=== PATIENT | female | born 1965 | race Caucasian/White ===

== ENCOUNTER → 2018-12-28 14:30 | Outpatient (CLI) | payer BC, SELFPAY ==
--- NOTE | 2018-12-28 14:30 | EMB_PTH ---
PATIENT: DANN LEIGH LOC: [facility] U#:[id number] AGE/SX: 59/F ROOM: RE12/28/[address]: Dr. Federico Florez MD : 1965 BED: DIS: SPEC #: [id number] RECD: 12/29/18 10:24 STATUS: GRACE NARGIS #: [id number] ESTELLE: 12/28/18 14:[address]: Federico Florez DEPT: SURGICAL PATHOLOGY RECD BY: Rigoberto Aguilar Tissues: Endometrium, NOS Procedures: Surgery Specimen Level IV HEADER OPERATION: Endometrial biopsy PRE-OP DIAGNOSIS: PMB N95.0 TISSUE SUBMITTED: Endometrial biopsy MICROSCOPIC DIAGNOSIS Endometrial biopsy: Scant strips of benign endometrial epithelium. Negative for hyperplasia. See comment. ALEKSEY:yola 12/30/18 COMMENT Clinical correlation and appropriate follow up are necessary. MICROSCOPIC DESCRIPTION Slides are reviewed. GROSS DESCRIPTION Received in fixative is one container labeled with the patient's name and designated EM biopsy. The specimen consists of a scant amount of soft tissue. The specimen is totally submitted for cell block preparation. / ALEKSEY:yola 12/29/18 TC:4 CPT: 07452
== END ==
PROVIDERS: Referring Provider Obstetrics & Gynecology; Visit Provider Obstetrics & Gynecology
DX: N95.0 Postmenopausal bleeding (principal)
CPT/HCPCS: 88305

== ENCOUNTER 2020-12-02 20:17 | Emergency (ER) | payer OTHER, SELFPAY ==
[2020-12-02 20:18] VITALS: BP 178/110; PULSE 80; RESP 18; TEMP 36.3; O2SAT 97; BMI 29.9
--- NOTE | 2020-12-02 21:08 | CT_ITS ---
EXAM: CT HEAD WITHOUT INTRAVENOUS CONTRAST : 1965 CLINICAL INDICATION: Injury/Pain TECHNIQUE: Multiple axial images were obtained of the head without intravenous contrast. This CT exam was performed using one or more of the following dose reduction techniques: automated exposure control, adjustment of the mA and/or kV according to patient size, and/or use of iterative reconstruction technique. This report was created using [employer] report generation technology. COMPARISON: None. FINDINGS: BRAIN AND EXTRA-AXIAL SPACES: Unremarkable. No intra- or extra-axial hemorrhage. No evidence of acute infarct. No intracranial mass or mass effect. There is preservation of the [place]/white matter interface. Posterior fossa structures are unremarkable. Ventricles are appropriate for age. No hydrocephalus. Basal cisterns are patent. BONES/JOINTS: Unremarkable. No discrete lytic or blastic abnormalities. SINUSES: Unremarkable as visualized. Clear. MASTOID AIR CELLS: Unremarkable. Clear. ORBITS: Visualized globes, extraocular muscles, optic nerves and retrobulbar fat appear unremarkable. CT/Brain/Head without Contrast IMPRESSION: Negative head/brain CT without intravenous contrast. Individualized dose optimization techniques were used for this CT. at 2133 Reported and signed by: Emigdio Perez MD Electronically Signed: Emigdio Perez MD at 21:32 EDT Tel , Service support ,
--- NOTE | 2020-12-02 21:08 | CT_ITS ---
EXAM: CT CERVICAL SPINE WITHOUT INTRAVENOUS CONTRAST : 1965 CLINICAL INDICATION: Injury/Pain TECHNIQUE: Helically acquired images were obtained of the cervical spine without intravenous contrast. 2D reformatted images were reviewed. This CT exam was performed using one or more of the following dose reduction techniques: automated exposure control, adjustment of the mA and/or kV according to patient size, and/or use of iterative reconstruction technique. This report was created using [employer] report generation technology. COMPARISON: None. FINDINGS: VERTEBRAE: Unremarkable. No fracture. No traumatic subluxation. No discrete lytic or blastic abnormality. Normal alignment. Normal craniocervical junction and cervicothoracic junction. DISCS/SPINAL CANAL/NEURAL FORAMINA: There is disc space narrowing at C5-6 and C6-7. There is left bony neural foraminal narrowing at C4-5 with bilateral bony neural foraminal narrowing at C5-6. SOFT TISSUES: Unremarkable. No prevertebral soft tissue swelling. LYMPH NODES: Unremarkable. No cervical adenopathy. LUNG APICES: Unremarkable as visualized. Clear. CT/Spine Cervical without Contras IMPRESSION: 1. No acute osseous abnormalities. 2. Degenerative changes with disc space narrowing and bony neural foraminal narrowing. Individualized dose optimization techniques were used for this CT. at 2148 Reported and signed by: Emigdio Perez MD Electronically Signed: Emigdio Perez MD at 21:47 EDT Tel , Service support ,
[2020-12-02] MEDS: Acetaminophen 500 MG Tablet 1000 MG PO (21:19)
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
[2020-12-02] MEDS: oxyCODONE 5 MG Tablet PO (23:08)
== END 2020-12-02 23:10 | disposition home or self-care (01) ==
PROVIDERS: Emergency Provider Emergency Medicine; PCP Family Medicine
DX: S09.90XA Unspecified injury of head, initial encounter (principal); S16.1XXA Strain of muscle, fascia and tendon at neck level, initial encounter; E03.9 Hypothyroidism, unspecified; I10 Essential (primary) hypertension; Z79.899 Other long term (current) drug therapy; Z87.891 Personal history of nicotine dependence; Y92.410 Unspecified street and highway as the place of occurrence of the external cause; V89.2XXA Person injured in unspecified motor-vehicle accident, traffic, initial encounter
CPT/HCPCS: 70450; 72125; 99285